=== PATIENT | female | born 1965 | race Caucasian/White ===

== ENCOUNTER → 2017-04-20 | Outpatient (CLI) | payer BC ==
--- NOTE | 2017-04-20 15:34 | RADIOLOGY IMAGING REPORT ---
FACILITY: [facility] PATIENT NAME: STAN BREEN : [id number] MR: [id number] V: [id number] EXAM DATE: ORDERING PHYSICIAN: CELSO REYNA TECHNOLOGIST: Denise Becker PROCEDURE:BILATERAL DIGITAL SCREENING MAMMOGRAM WITH CAD ASSISTED INTERPRETATION & 3D TOMOSYNTHESIS COMPARISON:03/07/16, 12/17/14, 09/24/12 INDICATIONS:screening FINDINGS: Breast parenchyma has scattered fibroglandular densities. There are no mammographic findings concerning for malignancy. There is no significant interval change. DIAGNOSTIC CATEGORY 1--NEGATIVE. RECOMMENDATIONS: ROUTINE MAMMOGRAM AND CLINICAL EVALUATION IN 1 YR. IMPRESSION: BIRADS 1: Negative. Dictated by: Jesus Marina on 04/20/2017 at 13:34 Transcribed by: YAHIR on 04/20/2017 at 15:14 Approved by: Jesus Marina on 04/20/2017 at 15:33 [facility]
== END ==
LOC: MAMO 00:22
PROVIDERS: ATTEND Nurse Practitioner Family
DX: Z12.31 Encounter for screening mammogram for malignant neoplasm of breast (principal)
CPT/HCPCS: 77063; 77067

== ENCOUNTER → 2018-04-29 | Outpatient (CLI) | payer OTHER ==
--- NOTE | 2018-04-29 14:25 | RADIOLOGY IMAGING REPORT ---
FACILITY: [facility] PATIENT NAME: STAN BREEN : [id number] MR: [id number] V: [id number] EXAM DATE: [id number] ORDERING PHYSICIAN: LEE ROMO TECHNOLOGIST: Valery Saez PROCEDURE:BILATERAL DIGITAL SCREENING MAMMOGRAM WITH CAD ASSISTED INTERPRETATION & 3D TOMOSYNTHESIS COMPARISON:Prior mammogram 04/20/2017. INDICATIONS:SCREENING FINDINGS: Breast tissue demonstrates scattered fibroglandular tissue elements. There is no suspicious mass, calcification, or architectural distortion. DIAGNOSTIC CATEGORY 1--NEGATIVE. RECOMMENDATIONS: ROUTINE MAMMOGRAM AND CLINICAL EVALUATION. IMPRESSION: BIRADS 1: Negative. No mammographic evidence for malignancy. Dictated by: Jesus Guzman M.D. on 04/29/2018 at 12:22 Transcribed by: HOLLY on 04/29/2018 at 13:22 Approved by: Jesus Guzman M.D. on 04/29/2018 at 14:24 [facility]
== END ==
LOC: MAMO 01:19
PROVIDERS: ATTEND Obstetrics & Gynecology
DX: Z12.31 Encounter for screening mammogram for malignant neoplasm of breast (principal)
CPT/HCPCS: 77063; 77067